=== PATIENT | male | born 1945 | race Caucasian/White ===

== ENCOUNTER 2018-10-01 20:33 | Emergency (ER) | payer MEDICARE, OTHER ==
[2018-10-01] MEDS ORDERED: Take Home: Ondansetron 4 MG Tab.DIS, 2 Tab Pack PO ONE (22:14)
--- NOTE | 2018-10-01 22:22 | EDM.PDOC ---
ED HPI GENERAL MEDICAL PROBLEM - General Chief Complaint: Head Injury Stated Complaint: FELL OUT OF WHEELCHAIR;HIT HEAD Time Seen by Provider: 10/01/18 20:42 Source of Information: Reports: Patient History Limitations: Reports: No Limitations - History of Present Illness INITIAL COMMENTS - FREE TEXT/NARRATIVE: Pt. presents to ER with complaints of head, neck and posterior shoulder pain bilaterally. Pt. was in a wheelchair visiting with family on a trip away from the [place] [facility] when he tipped over backward, striking his head, neck and shoulders on the ground. Pt. is a resident at [facility] and is in a wheelchair ( bilateral amputation). Family relates that the pt. had a brief LOC, but quickly regained consciousness. No problems with his memory. He complains of some headache and intermittent nausea but no vomiting. He complains of pain to the mid portion of his cervical spine and pain to both of his shoulders posteriorly. Denies any mid or low back pain. Denies any numbness/tingling in extremities. Denies any chest or abdominal pain. No pelvic pain. Onset: Today Onset Date: 10/01/18 Location: Reports: Head, Neck, Upper Extremity, Left, Upper Extremity, Right Quality: Reports: Ache Shoulders and Neck Pain Score (Numeric/FACES): 8 - Related Data Allergies Allergy/AdvReac Type Severity Reaction Status Date / Time lorazepam Allergy Other Verified 10/01/18 20:59 Home Meds: Home Meds Acetaminophen [Tactinal] 650 mg PO Q6H PRN 02/14/18 [History] Bisacodyl [Dulcolax] 5 mg PO ASDIRECTED PRN 02/14/18 [History] Bumetanide 0.5 mg PO DAILY 02/14/18 [History] Escitalopram Oxalate 20 mg PO DAILY 02/14/18 [History] Famotidine [Pepcid] 20 mg PO DAILY 02/14/18 [History] Ferrous Gluconate 324 mg PO DAILY 02/14/18 [History] Hydrocortisone [Hydrocortisone 1% Crm] 28.4 gm TOP ASDIRECTED PRN 02/14/18 [ History] Loperamide [Imodium AD] 2 mg PO ASDIRECTED PRN 02/14/18 [History] Menthol [Cough Drops] 5 mg MM ASDIRECTED PRN 02/14/18 [History] Menthol/Camphor [Sarna Anti-Itch] 222 ml TP BID 02/14/18 [History] Menthol/Camphor [Sarna Anti-Itch] 222 ml TP DAILY PRN 02/14/18 [History] Morphine 7.5 mg PO Q4H PRN 02/14/18 [History] Nitroglycerin 0.4 mg SL ASDIRECTED PRN 02/14/18 [History] Ondansetron [Zofran] 4 mg PO Q6H PRN 02/14/18 [History] Triamcinolone Acetonide [Triamcinolone Acetonide 0.1% Crm] 1 applic .XX ASDIRECTED 02/14/18 [History] guaiFENesin/Dextromethorphan [Tussin Dm Cough Syrup] 10 ml PO ASDIRECTED PRN [History] Past Medical History Cardiovascular History: Reports: CAD, Cardiomyopathy, Heart Failure, High Cholesterol, Hypertension, Pulmonary Hypertension, PVD Genitourinary History: Reports: BPH, Renal Disease Psychiatric History: Reports: Depression Endocrine/Metabolic History: Reports: Diabetes, Type II, Hypothyroidism Hematologic History: Reports: Anemia ED ROS GENERAL - Review of Systems Review Of Systems: See Below Constitutional: Reports: No Symptoms HEENT: Reports: No Symptoms Respiratory: Reports: No Symptoms Cardiovascular: Reports: No Symptoms Endocrine: Reports: No Symptoms GI/Abdominal: Reports: No Symptoms : Reports: No Symptoms Musculoskeletal: Reports: Neck Pain, Shoulder Pain Skin: Reports: No Symptoms Neurological: Reports: Headache Psychiatric: Reports: No Symptoms Hematologic/Lymphatic: Reports: No Symptoms Immunologic: Reports: No Symptoms ED EXAM, HEAD INJURY - Physical Exam Exam: See Below Exam Limited By: No Limitations General Appearance: Alert, WD/WN, No Apparent Distress Head: Scalp Hematoma, Scalp Tenderness, Other (abrasions to occiput and behind L ear) Nexus Criteria: Posterior, Midline Cervical Tenderness Eyes: Bilateral Eye: EOMI, Normal Fundi, Normal Inspection, PERRL Ears: Normal External Exam, Normal Canal, Hearing Grossly Normal Nose: Normal Inspection, Normal Mucousa, No Blood Throat/Mouth: Normal Inspection, Normal Lips, Normal Oropharynx, No Airway Compromise Neck: Limited Range of Motion, Painful Range of Motion, Other (Pain at area of approx C3. No discomfort distal to this area) Respiratory: No Respiratory Distress, Lungs Clear, Normal Breath Sounds, No Accessory Muscle Use, Chest Non-Tender Cardiovascular: Normal Peripheral Pulses, Regular Rate, Rhythm GI/Abdominal Exam: Normal Bowel Sounds, Soft, Non-Tender Back Exam: Normal Inspection, Full Range of Motion Neurologic: mail rider II-XII nml As Tested, No Motor/Sensory Deficits, Alert, Normal Mood/Affect, Oriented x 3 Skin: Normal Color, Warm/Dry Course - Vital Signs Last Recorded V/S: Last Vital Signs Temp 36.1 C 10/01/18 21:07 Pulse 94 10/01/18 21:07 Resp 14 10/01/18 21:07 BP 125/66 10/01/18 21:07 Pulse Ox 94 L 10/01/18 21:07 - Orders/Labs/Meds Orders: Active Orders 24 hr Category Date Time Status Cervical Spine wo Cont [CT] Stat Exams 10/01/18 20:43 Taken Head wo Cont [CT] Stat Exams 10/01/18 20:42 Taken Shoulder Comp Bi [CR] Stat Exams 10/01/18 20:44 Taken Meds: Medications Discontinued Medications Generic Name Dose Route Start Last Admin Trade Name Vidhya PRN Reason Stop Dose Admin Ondansetron HCl 1 packet 10/01/18 22:14 10/01/18 22:21 Take Home: Ondansetron Odt 4 Mg, 2 Tab Pack PO 10/01/18 22:15 1 packet ONETIME ONE Administration - Radiology Interpretation Free Text/Narrative:: CT brain is negative for acute injury CT c-spine showed T1-T2 compression fracture. Radiographs of both shoulders were negative. Departure - Departure Time of Disposition: 10:49 Disposition: Home, Self-Care 01 Condition: Good Clinical Impression: Concussion injury of brain, Compression fracture of T1 vertebra - Discharge Information Instructions: Head Injury, Adult, Spinal Compression Fracture Referrals: Diana Ann MD [Primary Care Provider] - Forms: ED Department Discharge Additional Instructions: Continue with Morphine for pain. If the pain is not helped by the oral morphine , contact either the ER or his PCP and he will get him started on something in addition to the morphine (or increase the dosage) Zofran 4mg ODT 1 tab every 6 hours as needed for nausea Recheck in clinic in 14 days, sooner if not gradually improving - Problem List Review Problem List Initiated/Reviewed/Updated: Yes - My Orders Last 24 Hours: My Active Orders 10/01/18 20:42 Head wo Cont [CT] Stat 10/01/18 20:43 Cervical Spine wo Cont [CT] Stat 10/01/18 20:44 Shoulder Comp Bi [CR] Stat - Assessment/Plan Last 24 Hours: My Active Orders 10/01/18 20:42 Head wo Cont [CT] Stat 10/01/18 20:43 Cervical Spine wo Cont [CT] Stat 10/01/18 20:44 Shoulder Comp Bi [CR] Stat Plan: He does have T1 and T2 compression fractures. Pt. did not have any acute pain on palpation of this level, in fact, the pain in his neck was resolved on discharge without any intervention or medication. It is questionable if these fractures area acute based on physical exam. Continue with Morphine for pain. If the pain is not helped by the oral morphine , contact either the ER or his PCP and he will get him started on something in addition to the morphine (or increase the dosage) Zofran 4mg ODT 1 tab every 6 hours as needed for nausea Recheck in clinic in 14 days, sooner if not gradually improving
--- NOTE | 2018-10-02 08:05 | CT ---
[id number] CT/CT Head WO IV EXAM: NONCONTRAST HEAD CT INDICATION: Fall backwards with head trauma. COMPARISON: None. DISCUSSION: There is mild generalized atrophy. Mild multifocal white matter hypoattenuation is nonspecific, but generally ascribed to chronic small vessel ischemia. No mass effect or midline shift. No acute hemorrhage or extra-axial fluid collection. No acute territorial infarct is identified. A limited look at the orbits and paranasal sinuses is unremarkable. IMPRESSION: 1. No evidence of acute intracranial trauma. Mike Dasilva MD 10/02/18 0804 Thank you for allowing us to participate in the care of your patient.
--- NOTE | 2018-10-02 08:51 | CR ---
[id number] RAD/RAD Shoulder Left 2V Min EXAM: LEFT SHOULDER 3 VIEWS INDICATION: Fall with posterior shoulder pain. COMPARISON: None. DISCUSSION: Chronic left rib fractures. Mild to moderate acromioclavicular osteoarthritis. No acute fracture, dislocation or other osseous abnormality is identified. IMPRESSION: 1. No acute findings. Mike Dasilva MD 10/02/18 0851 Thank you for allowing us to participate in the care of your patient.
--- NOTE | 2018-10-02 08:55 | CT ---
[id number] CT/CT Cervical Spine WO IV EXAM: CT Cervical Spine WO IV INDICATION: FELL COMPARISON: None. DISCUSSION: Acute compression fracture of T2 with mild loss of vertebral body height. No evidence of bony retropulsion involving the posterior cortex. Fracture does not involve the posterior elements. Facet joints are intact. Additionally, there is slight irregularity of the T1 superior endplate which could represent a nondisplaced compression fractures well. Advanced changes of spondylosis in the cervical spine at C4-5, C5-6, and C6-7. No prevertebral soft tissue edema. Partially visualized right-sided pleural effusion extends beyond the field of view of this examination. Structures in the superior mediastinum are unremarkable. IMPRESSION: Acute T2 compression fracture with mild loss of vertebral body height. No evidence of and unstable fracture, described in detail above. Possible mild superior endplate compression deformity of T1. Partially visualized right-sided pleural effusion. Bossman Giraldo MD 10/02/18 0854 Thank you for allowing us to participate in the care of your patient.
== END 2018-10-01 22:19 | disposition home or self-care (01) ==
LOC: SUPCPDRO 20:33 → VM.ED 20:33
DX: S06.0X9A Concussion with loss of consciousness of unspecified duration, initial encounter (principal); S22.019A Unspecified fracture of first thoracic vertebra, initial encounter for closed fracture; S00.03XA Contusion of scalp, initial encounter; S00.412A Abrasion of left ear, initial encounter; I11.0 Hypertensive heart disease with heart failure; I50.9 Heart failure, unspecified; E78.00 Pure hypercholesterolemia, unspecified; E11.9 Type 2 diabetes mellitus without complications; E03.9 Hypothyroidism, unspecified; Z79.899 Other long term (current) drug therapy; Z88.8 Allergy status to other drugs, medicaments and biological substances; W01.0XXA Fall on same level from slipping, tripping and stumbling without subsequent striking against object, initial encounter
CPT/HCPCS: 70450; 72125; 73030; 99284; 99285; A9270

== ENCOUNTER 2018-10-02 15:06 | Emergency (ER) | payer MEDICARE, OTHER ==
[2018-10-02] MEDS ORDERED: Acetaminophen/HYDROcodone 325-10 MG Tab PO ONE (15:11)
--- NOTE | 2018-10-03 06:32 | EDM.PDOC ---
ED HPI GENERAL MEDICAL PROBLEM - General Chief Complaint: Trauma Time Seen by Provider: 10/02/18 15:06 Source of Information: Reports: Patient, RN Notes Reviewed History Limitations: Reports: No Limitations - History of Present Illness INITIAL COMMENTS - FREE TEXT/NARRATIVE: Pt. was seen in ER on evening of 10/01 following a fall backwards in his wheelchair. He had a CT scan of his brain and c-spine which showed a compression fx. at T1-T2. Radiologist at that time felt as though the fracture was stable and the patient was not having significant pain in the area so he was sent back to the care home. Pt. PCP, Dr. Ann, requested neurosurgery be consulted. They requested further imaging so he was brought back to ER. Pt. only complaint is that of head pain. He only complained of some lateral neck pain and denied any back pain or pain in area of T1-T2. Denies any numbness /tingling to extremities or torso, difficulty breathing. Onset Date: 10/01/18 Location: Reports: Head Quality: Reports: Ache Posterior Neck Pain Score (Numeric/FACES): 2 - Related Data Allergies Allergy/AdvReac Type Severity Reaction Status Date / Time lorazepam Allergy Other Verified 10/02/18 15:59 Home Meds: Home Meds Acetaminophen [Tactinal] 650 mg PO Q6H PRN 02/14/18 [History] Bumetanide 0.5 mg PO DAILY 02/14/18 [History] Escitalopram Oxalate 20 mg PO DAILY 02/14/18 [History] Famotidine [Pepcid] 20 mg PO DAILY 02/14/18 [History] Ferrous Gluconate 324 mg PO DAILY 02/14/18 [History] Loperamide [Imodium AD] 2 mg PO ASDIRECTED PRN 02/14/18 [History] Menthol [Cough Drops] 5 mg MM ASDIRECTED PRN 02/14/18 [History] Menthol/Camphor [Sarna Anti-Itch] 222 ml TP BID 02/14/18 [History] Morphine 7.5 mg PO Q4H PRN 02/14/18 [History] Ondansetron [Zofran] 4 mg PO Q6H PRN 02/14/18 [History] Triamcinolone Acetonide [Triamcinolone Acetonide 0.1% Crm] 1 applic .XX ASDIRECTED 02/14/18 [History] Aloe Vera/Sodium Chloride [[place] Saline Nasal Gel] 1 applic WINSOME QID PRN 10/01/18 [ History] Levothyroxine Sodium [Synthroid] 25 mcg PO DAILY 10/01/18 [History] Past Medical History Cardiovascular History: Reports: CAD, Cardiomyopathy, Heart Failure, High Cholesterol, Hypertension, Pulmonary Hypertension, PVD Gastrointestinal History: Reports: GERD, Other (See Below) Other Gastrointestinal History: History of Nausea and Vomiting. Benign Neoplasm of Colon Genitourinary History: Reports: BPH, Renal Disease Other Genitourinary History: Renal Disease - Stage 3 Musculoskeletal History: Reports: Amputation, Other (See Below) Other Musculoskeletal History: Bilateral Above the Knee Amputations Psychiatric History: Reports: Depression Endocrine/Metabolic History: Reports: Diabetes, Type II, Hypothyroidism Hematologic History: Reports: Anemia Dermatologic History: Reports: Other (See Below) Other Dermatologic History: Squamous Cell Carcinoma of Skin - Past Surgical History Musculoskeletal Surgical History: Reports: Amputation ED ROS GENERAL - Review of Systems Review Of Systems: See Below Constitutional: Reports: No Symptoms HEENT: Reports: No Symptoms Respiratory: Reports: No Symptoms Cardiovascular: Reports: No Symptoms Endocrine: Reports: No Symptoms GI/Abdominal: Reports: No Symptoms : Reports: No Symptoms Musculoskeletal: Reports: No Symptoms Skin: Reports: No Symptoms Neurological: Reports: Headache Psychiatric: Reports: No Symptoms Hematologic/Lymphatic: Reports: No Symptoms Immunologic: Reports: No Symptoms ED EXAM, GENERAL - Physical Exam Exam: See Below Exam Limited By: No Limitations General Appearance: Alert, WD/WN, No Apparent Distress Neck: Normal Inspection, Supple, Non-Tender, Full Range of Motion Back Exam: Normal Inspection, Other (No tenderness on palpation to entire spine. ) Course - Vital Signs Last Recorded V/S: Last Vital Signs Temp 35.5 C 10/02/18 15:15 Pulse 74 10/02/18 15:15 Resp 16 10/02/18 15:15 BP 165/89 H 10/02/18 15:15 Pulse Ox - Orders/Labs/Meds Meds: Medications Discontinued Medications Generic Name Dose Route Start Last Admin Trade Name Freq PRN Reason Stop Dose Admin Hydrocodone Bitart/Acetaminophen 1 tab 10/02/18 15:11 10/02/18 15:25 [place] 325-10 Mg PO 10/02/18 15:12 1 tab ONETIME ONE Administration - Radiology Interpretation Free Text/Narrative:: CT of T spine confirmed compression fx. at T1-t2. MRI was performed, again appearing stable to radiology. MRI requested by neurosurgeon. Radiology favored stable fracture that appeared stable and likely was sub acute or chronic. No posterior column or central canal involvement. Departure - Departure Time of Disposition: 18:50 Disposition: DC/Tfer to [facility] Clinical Impression: T1 vertebral fracture - Discharge Information Instructions: Vertebral Fracture, [id number] Referrals: Diana Ann MD [Primary Care Provider] - Forms: ED Department Discharge Additional Instructions: Keep C-collar on. Block will be in on to put on a more permanent collar. Bedrest for now. Return to ER if you have any numbness/tingling in extremities, difficulty walking, etc. Recheck with xrays in 10 days - Assessment/Plan Plan: Spoke at length again with radiology and neurosurgery. Neurosurgery felt the patient should be placed in a C[facility] splint and further imaged by the patient's PCP in approx. 2 weeks. Pt. was placed in a c-collar at this time and placed on bed rest. [facility] [employer] was consulted and patient was ordered a [facility] splint that will be placed on when they are in town. Again, pt. will be placed on bedrest for now at the request of neurosurgery.
--- NOTE | 2018-10-03 10:43 | MR ---
[id number] MR/MRI Thoracic Spine WO IV Exam: MRI Thoracic Spine WO IV Clinical Data: T1 AND T2 VERTEBRAL FRACTURES COMPARISON: CORRELATION IS MADE WITH THE CURRENT CAT SCAN FINDINGS: There are degenerative changes of the cervical spine involving C4-C5 primarily. A mild fracture of T2 is seen. There is minimal edema involving the subchondral marrow of the T1-T2 vertebrae. There is no projection of bone into the canal. IMPRESSION: MINIMAL FRACTURES OF T1 AND T2 THAT MAY ACTUALLY BE VERY SUBACUTE TO CHRONIC AT THIS POINT. Bang Urbina MD 10/03/18 1042 Thank you for allowing us to participate in the care of your patient.
== END 2018-10-02 18:50 ==
LOC: VM.ED 15:06
DX: S22.019A Unspecified fracture of first thoracic vertebra, initial encounter for closed fracture (principal); I13.0 Hypertensive heart and chronic kidney disease with heart failure and stage 1 through stage 4 chronic kidney disease, or unspecified chronic kidney disease; E11.22 Type 2 diabetes mellitus with diabetic chronic kidney disease; N18.3 Chronic kidney disease, stage 3 (moderate); I50.9 Heart failure, unspecified; K21.9 Gastro-esophageal reflux disease without esophagitis; E03.9 Hypothyroidism, unspecified; F32.9 Major depressive disorder, single episode, unspecified; Z88.8 Allergy status to other drugs, medicaments and biological substances; Z79.899 Other long term (current) drug therapy; W05.0XXA Fall from non-moving wheelchair, initial encounter; M48.54XA Collapsed vertebra, not elsewhere classified, thoracic region, initial encounter for fracture
CPT/HCPCS: 72128; 72146; 99284; A9270